=== PATIENT | female | born 1985 | race Caucasian/White ===

== ENCOUNTER 2023-09-06 11:24 | Emergency (ER) | payer OTHER ==
[~2023-09-06] VITALS: Ht 170.2 cm; Wt 65.9 kg
[2023-09-06 11:37] VITALS: BP 124/84; TEMP 98.4
[2023-09-06] MEDS ORDERED: PRISTIQ 50 MG T50 MG PO (11:44)
[2023-09-06] MEDS ORDERED: PYRIDIUM 100MG100 MG (11:44)
[2023-09-06] MEDS ORDERED: ILOTYCIN5 MG/GM OP (12:09)
[2023-09-06 12:20] VITALS: PULSE 73
== END 2023-09-06 12:21 | disposition home or self-care (01) ==
LOC: COL.ER 11:24
DX: H01.001 Unspecified blepharitis right upper eyelid (principal)